=== PATIENT | female | born 1975 | race Caucasian/White ===

== ENCOUNTER 2016-11-27 00:08 | Emergency (ER) | payer SELFPAY ==
[~2016-11-27] VITALS: Ht 154.9 cm; Wt 81.6 kg
[2016-11-27 00:12] VITALS: BP 143/78; PULSE 76; RESP 16; TEMP 98; O2SAT 100
[2016-11-27 00:34] VITALS: BP 129/76; PULSE 73; RESP 17; TEMP 98; O2SAT 99
== END 2016-11-27 00:34 ==
LOC: SED 00:08
DX: Z02.89 Encounter for other administrative examinations (principal)
CPT/HCPCS: 99283